=== PATIENT | female | born 1975 | race Caucasian/White ===

== ENCOUNTER 2018-01-21 13:48 | Outpatient (CLI) | payer OTHER ==
--- NOTE | 2018-01-21 20:23 | RAD ---
CHEST TWO VIEWS: 01/21/2018 COMPARISON: 04/12/2015 FINDINGS: The heart is normal in size. Scoliosis is noted, as usual. There is no vascular congestion, edema, or pleural effusion. While there is no lobar consolidation, the basilar lung markings seem a little more prominent today t galarza before. This is also true in the retrocardiac region on the lateral view. This is a nonspecific finding and can be seen in many entities, including bronchitis. IMPRESSION: Mild prominence of basilar markings compared to the prior study. POS: HOME
== END 2018-01-21 13:49 | disposition home or self-care (01) ==
LOC: BURRAD 13:48
PROVIDERS: ATTEND Physician Assistant
DX: J40 Bronchitis, not specified as acute or chronic (principal); Z87.01 Personal history of pneumonia (recurrent)
CPT/HCPCS: 71046